=== PATIENT | female | born 1945 | race Caucasian/White ===

== ENCOUNTER 2021-05-14 15:44 | Emergency (ER) | payer MEDICARE, SELFPAY ==
[2021-05-14 15:50] VITALS: BP 138/65; PULSE 86; RESP 16; TEMP 36.6; O2SAT 98
[2021-05-14 16:03] VITALS: BP 138/65; PULSE 86; RESP 16; TEMP 36.6; O2SAT 98
[2021-05-14 16:14] VITALS: BP 140/78; PULSE 96; RESP 20; TEMP 35.6; O2SAT 99
--- NOTE | 2021-05-14 16:21 | ED.GENADULT ---
HPI - General Adult General Chief complaint: Unspecified Stated complaint: not feeling well Related Data Home Medications Medication Instructions Recorded Confirmed carvedilol phosphate [Coreg CR] mg PO 05/14/21 levothyroxine 05/14/21 meloxicam 05/14/21 sacubitril-valsartan [Entresto] 05/14/21 Allergies Allergy/AdvReac Type Severity Reaction Status Date / Time Penicillins Allergy Mild Verified 08/25/17 10:54 Course Vital Signs Vital signs: Vital Signs Temperature 97.9 F 05/14/21 15:50 Pulse Rate 86 05/14/21 15:50 Respiratory Rate 16 05/14/21 15:50 Blood Pressure 138/65 05/14/21 15:50 Pulse Oximetry 98 05/14/21 15:50 Temperature 96.1 F L 05/14/21 16:14 Pulse Rate 96 05/14/21 16:14 Respiratory Rate 20 05/14/21 16:14 Blood Pressure 140/78 05/14/21 16:14 Pulse Oximetry 99 05/14/21 16:14 Medical Decision Making Vital Signs Vital Signs: Vital Signs Temperature 97.9 F 05/14/21 15:50 Pulse Rate 86 05/14/21 15:50 Respiratory Rate 16 05/14/21 15:50 Blood Pressure 138/65 05/14/21 15:50 Pulse Oximetry 98 05/14/21 15:50 Temperature 96.1 F L 05/14/21 16:14 Pulse Rate 96 05/14/21 16:14 Respiratory Rate 20 05/14/21 16:14 Blood Pressure 140/78 05/14/21 16:14 Pulse Oximetry 99 05/14/21 16:14 Discharge Plan Discharge Clinical Impression: Viral infection, Upper respiratory infection, viral Patient Disposition: Home, Self-Care Condition: Stable Instructions: Antibiotic Form Additional Instructions: Follow up with provider in 1 week Take medication as prescribed What are the main signs? ?Cough ?Sneezing ?Sore throat ?Runny nose ?Stuffy nose ?Fever ?Headache ?Muscle pain ?Tired ?Weakness What can be done to prevent this health problem? ?Have your child wash hands often with soap and water for at least 15 seconds, especially after coughing or sneezing. Alcohol-based hand sanitizers also work to kill germs. ?If your child is sick, have your child cover the mouth and nose with tissue when coughing or sneezing. Your child can also cough into the elbow. Have your child throw away tissues in the trash and wash hands after touching used tissues. ?Do not get too close (kissing, hugging) to people who are sick. ?Do not share towels or hankies with anyone who is sick. ?Stay away from crowded places. ?Have your child get a flu shot each year. Prescriptions: New ondansetron HCl [Zofran] 4 mg tablet 4 mg PO Q8H PRN (Reason: nausea and vomiting) Qty: 30 RF: 0 No Action meloxicam 15 mg tablet RF: 0 levothyroxine 50 mcg tablet RF: 0 carvedilol phosphate [Coreg CR] 10 mg capsule, ER multiphase 24 hr PO RF: 0 Entresto 24-26 mg tablet RF: 0 Other Ambulatory Orders: SARS-CoV-2 RNA, Qual RT-PCR (Routine) Timeframe: 1 Week Facility: [facility] - Location: [facility] Thru Testing Ordered By: Skyler Reyes Follow-up/Referrals: UNKNOWN,DOCTOR [Primary Care Provider] -
--- NOTE | 2021-05-14 16:22 | ED.GENADULT ---
HPI - General Adult General Chief complaint: Unspecified Stated complaint: not feeling well Source: patient and RN notes reviewed Mode of arrival: ambulatory History of Present Illness HPI narrative: This is a 75-year-old female who presented to urgent care with complaints of nausea, headache, drainage and congestion with chills. Patient has been vaccinated with the [employer] vaccination x2. Patient states that she has been socializing more with her mask off and and wants to be tested for Covid .patient did not take anything at home to relieve her symptoms. The patient denies SOB, CP, palpitation, extremity numbness, lightheadedness, dizziness, constipation, diarrhea, chills, or fever. Related Data Home Medications Medication Instructions Recorded Confirmed carvedilol phosphate [Coreg CR] mg PO 05/14/21 levothyroxine 05/14/21 meloxicam 05/14/21 sacubitril-valsartan [Entresto] 05/14/21 Allergies Allergy/AdvReac Type Severity Reaction Status Date / Time Penicillins Allergy Mild Verified 08/25/17 10:54 Review of Systems Review of Systems: A 14 organ system Review of Systems was performed and pertinent positives included in the HPI, otherwise remaining ROS is negative. [facility] Family History Family History (Updated 05/14/21 @ 16:25 by JUAN R Sanchez-Brijesh) Other Family history non-contributory Exam Narrative: GENERAL: This is a well-nourished, well-developed patient, in no apparent distress. HEAD: normocephalic, atraumatic. EYES: PERRL. Sclera clear/white. Vision is grossly intact. EARS: External ears normal, auditory canals clear and without drainage, TMs normal without perforation. Hearing grossly intact. NOSE: External nose normal with no obvious nasal discharge, nares without redness, no rhinorrhea. THROAT: Mucous membranes moist, posterior pharynx clear. NECK: Neck supple, non-tender without lymphadenopathy, masses or thyromegaly. CARDIOVASCULAR: Regular rate and rhythm without murmurs, gallops, or rubs. RESPIRATORY: Clear to auscultation. Breath sounds equal bilaterally. No wheezes, rales, or rhonchi. GASTROINTESTINAL: Abdomen soft, non-tender, nondistended. Bowel sounds are active. No hepato-splenomegaly, or palpable masses. No guarding. SKIN: warm, intact with no suspicious lesions or rash, good texture and turgor. NEURO: awake, alert, and oriented to person, place and time. There were no obvious focal neurologic abnormalities. Steady gait EXTREMITIES: Normal range of motion. No edema. No calf tenderness. Negative Homans sign bilaterally. BACK: Nontender without deformity or crepitance. No flank tenderness. Course Course Emergency Course: Patient will be given Zofran for nausea and instructed to use [id number] medication for her symptoms. She will also be tested for Covid. Vital Signs Vital signs: Vital Signs Temperature 97.9 F 05/14/21 15:50 Pulse Rate 86 05/14/21 15:50 Respiratory Rate 16 05/14/21 15:50 Blood Pressure 138/65 05/14/21 15:50 Pulse Oximetry 98 05/14/21 15:50 Temperature 96.1 F L 05/14/21 16:14 Pulse Rate 96 05/14/21 16:14 Respiratory Rate 20 05/14/21 16:14 Blood Pressure 140/78 05/14/21 16:14 Pulse Oximetry 99 05/14/21 16:14 Medical Decision Making Differential Diagnosis Differential Diagnosis: Viral upper respiratory infection, bronchitis versus Covid versus gastroenteritis Vital Signs Vital Signs: Vital Signs Temperature 97.9 F 05/14/21 15:50 Pulse Rate 86 05/14/21 15:50 Respiratory Rate 16 05/14/21 15:50 Blood Pressure 138/65 05/14/21 15:50 Pulse Oximetry 98 05/14/21 15:50 Temperature 96.1 F L 05/14/21 16:14 Pulse Rate 96 05/14/21 16:14 Respiratory Rate 20 05/14/21 16:14 Blood Pressure 140/78 05/14/21 16:14 Pulse Oximetry 99 05/14/21 16:14 Discharge Plan Discharge Clinical Impression: Viral infection, Upper respiratory infection, viral Patient Disposition: Home, Self-Care
== END 2021-05-14 16:22 | disposition home or self-care (01) ==
PROVIDERS: Emergency Provider Nurse Practitioner
DX: B34.9 Viral infection, unspecified (principal); J06.9 Acute upper respiratory infection, unspecified; Z20.822 Contact with and (suspected) exposure to COVID-19
CPT/HCPCS: 99213; G0463

== ENCOUNTER → 2021-05-16 07:23 | Outpatient (CLI) | payer MEDICARE, SELFPAY ==
[2021-05-17 00:17] LABS: SARS-CoV-2 RNA PCR Negative
== END ==
PROVIDERS: Visit Provider Nurse Practitioner
DX: Z20.822 Contact with and (suspected) exposure to COVID-19 (principal)
CPT/HCPCS: C9803; U0003; U0005

== ENCOUNTER 2021-08-19 08:38 | Emergency (ER) | payer MEDICARE, SELFPAY ==
[2021-08-19 08:50] VITALS: BP 141/71; PULSE 80; RESP 18; TEMP 36.3; O2SAT 99
--- NOTE | 2021-08-19 09:09 | ED.URI ---
HPI - URI/Sore Throat General Chief Complaint: Upper Respiratory Infection Stated Complaint: Congestion History of Present Illness HPI Narrative: This is a 75-year-old female that presents to the urgent care complaining of upper respiratory symptoms. Patient states that she thinks she has cut bronchitis from her brother and her brother are prone to catching illnesses from each other. Patient informs me that has been going on for over a week. Patient states that she started some extra doxycycline she had home and after she finished that she started some Omnicef because that is when she started feeling better. Patient states that she still not feeling good she still has a cough her voice is leaving her denies any fever nausea and/or vomiting or diarrhea Related Data Home Medications Medication Instructions Recorded Confirmed carvedilol phosphate [Coreg CR] 10 mg PO DAILY 05/14/21 08/19/21 levothyroxine 50 mcg PO DAILY 05/14/21 08/19/21 meloxicam 15 mg PO DAILY 05/14/21 08/19/21 sacubitril-valsartan [Entresto] 1 tablet PO DAILY 05/14/21 08/19/21 Allergies Allergy/AdvReac Type Severity Reaction Status Date / Time Penicillins Allergy Mild Hives Verified 08/19/21 09:28 Review of Systems Review of Systems: Complains of cough laryngitis sore throat runny nose All other symptoms reviewed and within normal limits [facility] Family History Family History (Updated 05/14/21 @ 16:25 by MATHEW Sanchez) Other Family history non-contributory Comments Past medical systems Exam Narrative: GENERAL:Well-appearing, pale and in no acute distress. HEAD:Normocephalic, EYES: PERRLA ENT: Nares clear, clear nasal drainage rhinorrhea . Mucous membranes moist. CHEST: Clear to auscultation. No respiratory distress. HEART: Regular rate and rhythm. ABDOMEN: Soft, nontender, nondistended, normal active bowel sounds. EXTREMITIES: Normal range of motion. No edema. SKIN: Warm, dry, no rash. NEURO: No focal deficits. Alert and oriented x3. Course Vital Signs Vital signs: Vital Signs Temperature 97.4 F L 08/19/21 08:50 Pulse Rate 80 08/19/21 08:50 Respiratory Rate 18 08/19/21 08:50 Blood Pressure 141/71 H 08/19/21 08:50 Pulse Oximetry 99 08/19/21 08:50 Temperature 97.4 F L 08/19/21 08:50 Pulse Rate 80 08/19/21 08:50 Respiratory Rate 18 08/19/21 08:50 Blood Pressure 141/71 H 08/19/21 08:50 Pulse Oximetry 99 08/19/21 08:50 MDM - URI/Sore Throat Differential Diagnosis Differential diagnosis: Likely upper respiratory infection, croup, otitis media, sinusitis, viral infection, bronchitis, influenza and pharyngitis Lab Data Labs: Influenza A Screen Negative Reference Range: Negative Influenza B Screen Negative Reference Range: Negative Strep Screen Presumptive Negative *(Reference Range: Negative)* Discharge Plan Discharge Clinical Impression: Upper respiratory infection Qualifiers: URI type: unspecified URI Qualified Code(s): J06.9 - Acute upper respiratory infection, unspecified Patient Disposition: Home, Self-Care Condition: Stable Instructions: Antibiotic Form, Viral Syndrome (ED) Additional Instructions: Viral illness may last between 7-12days; antibiotic is NOT recommended at this time. Recommend antihistamine such as Benadryl at night time and Claritin/Zyrtec/Steph during the day Also, recommend symptomatic treatment includes: rest, fluids, and increase humidity of the air at home. Recommend Acetaminophen or nonsteroidal anti-inflammatory agents (NSAIDs) as directed in the bottle to reduce fever and/pain/headache. Avoid smoking/second-hand smoke. Limit visits to areas with large crowds. Please schedule a follow-up visit with your personal physician for further evaluation and treatment within 3-5
== END 2021-08-19 10:29 | disposition home or self-care (01) ==
PROVIDERS: Emergency Provider Nurse Practitioner Family
DX: J06.9 Acute upper respiratory infection, unspecified (principal)
CPT/HCPCS: 87081; 87804; 87880; 99213; G0463

== ENCOUNTER → 2021-08-21 08:00 | Outpatient (CLI) | payer MEDICARE, SELFPAY ==
[2021-08-21 17:50] LABS: SARS-CoV-2 RNA PCR Negative
== END ==
PROVIDERS: PCP Nurse Practitioner Family; Visit Provider Nurse Practitioner Family
DX: J06.9 Acute upper respiratory infection, unspecified (principal); Z20.822 Contact with and (suspected) exposure to COVID-19
CPT/HCPCS: C9803; U0003; U0005

== ENCOUNTER → 2022-04-15 10:26 | Outpatient (CLI) | payer MEDICARE, SELFPAY ==
--- NOTE | ~2022-04-15 | US_ITS ---
US breast RT complete INDICATION: Palpable breast lump in the right breast. History of breast reduction surgery. Breast neyda n. Most recent mammogram 07/2021 at outside institution. History of breast cancer in the family. TECHNIQUE: Dedicated complete right breast ultrasound including all 4 quadrants in the subareolar loc ation COMPARISON: No prior studies for comparison. FINDINGS: The right breast is composed of normal heterogeneous echotexture without focal solid or cys tic mass. IMPRESSION: 1: Normal right breast ultrasound. Recommend correlation with diagnostic mammogram. BI-RADS CATEGORY 0 - INCOMPLETE STUDY, NEED ADDITIONAL IMAGING EVALUATION. Reviewed, dictated and finalized at location A. IMPRESSION: 1: Normal right breast ultrasound. Recommend correlation with diagnostic mammog otto. BI-RADS CATEGORY 0 - INCOMPLETE STUDY, NEED ADDITIONAL IMAGING EVALUATION.
== END ==
PROVIDERS: PCP Surgery Plastic and Reconstructive Surgery; Visit Provider Surgery Plastic and Reconstructive Surgery
DX: N63.10 Unspecified lump in the right breast, unspecified quadrant (principal); R92.2 Inconclusive mammogram
CPT/HCPCS: 76641

== ENCOUNTER 2023-04-24 18:05 | Emergency (ER) | payer MEDICARE, SELFPAY ==
[2023-04-24 18:16] VITALS: BP 102/69; PULSE 100; RESP 16; TEMP 37.2; O2SAT 99
[2023-04-24 18:18] VITALS: BP 102/69; PULSE 100; RESP 16; TEMP 37.2; O2SAT 99
--- NOTE | 2023-04-24 18:41 | ED.URI ---
HPI - URI/Sore Throat General Chief Complaint: Upper Respiratory Infection Stated Complaint: Sore throat Time Seen by Provider: 04/24/23 18:26 Source: patient and RN notes reviewed Mode of arrival: ambulatory Limitations: no limitations History of Present Illness HPI Narrative: Patient presents today complaining of a right-sided sore throat x3 days it is only present with swallowing. States she has felt feverish but has not had a fever. Reports some mild nasal congestion as well. She has been taking Sudafed and Claritin as well as 3 days of leftover doxycycline from a previous prescription. States none of these have been providing her with any relief. Related Data Home Medications Medication Instructions Recorded Confirmed carvedilol phosphate 10 mg 10 mg PO DAILY 05/14/21 04/24/23 capsule,[id number] multiphase (Coreg CR) levothyroxine 50 mcg tablet 50 mcg PO DAILY 05/14/21 04/24/23 meloxicam 15 mg tablet 15 mg PO DAILY 05/14/21 04/24/23 sacubitril 24 mg-valsartan 26 mg 1 tablet PO DAILY 05/14/21 04/24/23 tablet (Entresto) duloxetine 30 mg capsule,delayed 30 mg PO DAILY 04/24/23 04/24/23 release esomeprazole magnesium 20 mg 20 mg PO DAILY 04/24/23 04/24/23 capsule,delayed release Allergies Allergy/AdvReac Type Severity Reaction Status Date / Time Penicillins Allergy Mild Hives Verified 04/24/23 18:17 Review of Systems Review of Systems: CONSTITUTIONAL: Denies body aches, fever, chills, or sweats. EYES: Denies visual changes, redness, or discharge. ENT: Denies rhinorrhea, or otalgia.+ sore throat, congestion CARDIOVASCULAR: Denies chest pain, palpitations, or edema. RESPIRATORY: Denies cough or dyspnea. GASTROINTESTINAL: Denies abdominal pain, nausea, vomiting, or diarrhea. GENITOURINARY: Denies dysuria or hematuria. SKIN: Denies rash, itching, or wounds. MUSCULOSKELETAL: Denies back pain, joint pain, or myalgia. NEUROLOGIC: Denies headache, numbness, tingling, or weakness. PSYCH: Denies depression or anxiety. [facility] Past Medical History Medical History Cataracts, bilateral Surgical History Surgical History History of bilateral breast reduction surgery History of lumbar laminectomy Family History Family History Mother Lewy body dementia Father Polycythemia vera Sibling Lupus Other Family history non-contributory Social History Social History Smoking status: Never smoker Alcohol intake: current Comments At time of signature, I have reviewed and agree with nursing past medical, surgical, social and family history unless otherwise noted. Please see nursing chart for further information. There is no relevant family history pertinent to the presenting complaint Exam Narrative: GENERAL: Well-appearing, well-nourished, and in no acute distress. HEAD: Normocephalic, atraumatic. EYES: EOMI. No redness or drainage. Conjunctivae normal. ENT: Mucous membranes pink and moist. Nares clear. No rhinorrhea. TMs normal bilaterally. Throat with small white ulceration on an erythematous base to the right palatine arch. Uvula midline. No additional erythema, edema, or exudate noted. NECK: Normal AROM. CHEST: No respiratory distress. Clear to auscultation. HEART: Regular rate and rhythm. No murmur appreciated. Normal peripheral pulses. EXTREMITIES: Normal range of motion. No edema. SKIN: Warm, dry, no rash. Capillary refill normal. Normal skin turgor. NEURO: No focal deficits. Alert and oriented x3. Gait steady. PSYCH: Normal affect. No signs of depression or anxiety. Course Course Level of Care: Express Care Visit Vital Signs Vital signs: Vital Signs Temperature 98.9 F 04/24/23 18:16 Pulse Rate 100 04/24/23 18:
== END 2023-04-24 19:01 | disposition home or self-care (01) ==
PROVIDERS: Emergency Provider Nurse Practitioner; PCP Family Medicine
DX: K12.0 Recurrent oral aphthae (principal); H26.9 Unspecified cataract
CPT/HCPCS: 99213; G0463

== ENCOUNTER 2024-05-23 14:32 | Emergency (ER) | payer MEDICARE, SELFPAY ==
--- NOTE | ~2024-05-23 | XR_ITS ---
EXAMINATION: XR chest 2V Exam Date/Time: 05/23/2024 15:50 CDT HISTORY: cough congestion non smoker Comparison: 06/03/2010; CT chest 06/10/2018. RESULT: Lines, tubes, and devices: None. Lungs and pleura: Clear. Cardiomediastinal silhouette: Stable. Moderate hiatal hernia Other: No acute osseous or upper abdominal finding. IMPRESSION: No acute cardiopulmonary process. Reviewed, dictated and finalized at location K.
[2024-05-23 14:43] VITALS: BP 112/67; PULSE 78; RESP 16; TEMP 36.8; O2SAT 99
--- NOTE | 2024-05-23 15:35 | ED.URI ---
HPI - URI/Sore Throat General Chief Complaint: Upper Respiratory Infection Stated Complaint: Sinus Source: patient, RN notes reviewed and old records reviewed Mode of arrival: ambulatory Limitations: no limitations History of Present Illness HPI Narrative: Patient presents with complaints of runny nose, hoarseness, malaise. Symptoms have been present for approximately 4 days. She has been resting and drinking additional fluids. She is extremely anxious about her symptoms because she has an upcoming pacemaker/defibrillator procedure next week. 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 She denies any fever, chills, sweats. She denies any nausea or vomiting. She denies any GI symptoms. She does not appear to be in any distress. Related Data Home Medications Medication Instructions Recorded Confirmed levothyroxine 50 mcg tablet 50 mcg PO DAILY 05/14/21 05/23/24 sacubitril 24 mg-valsartan 26 mg 1 tablet PO DAILY 05/14/21 05/23/24 tablet (Entresto) dapagliflozin propanediol 10 mg 10 mg PO DAILY 05/23/24 05/23/24 tablet (Farxiga) metoprolol succinate 25 mg 25 mg PO DAILY 05/23/24 05/23/24 tablet,extended release 24 hr omeprazole 20 mg capsule,delayed 20 mg PO DAILY 05/23/24 05/23/24 release spironolactone 25 mg tablet 25 mg PO DAILY 05/23/24 05/23/24 Allergies Allergy/AdvReac Type Severity Reaction Status Date / Time Penicillins Allergy Mild Hives Verified 05/23/24 15:36 Review of Systems Review of Systems: All systems reviewed & are unremarkable except as noted in HPI and below Constitutional: Constitutional: Reports no additional constitutional complaints ENT: Reports system reviewed and no additional complaints, except as documented Cardiovascular: Cardiovascular: Reports no additional cardiovascular complaints Respiratory: Respiratory: Reports no additional respiratory complaints Gastrointestinal: Gastrointestinal: Reports no additional gastrointestinal complaints [facility] Past Medical History Medical History Cataracts, bilateral Surgical History Surgical History History of bilateral breast reduction surgery History of lumbar laminectomy Family History Family History Mother Lewy body dementia Father Polycythemia vera Sibling Lupus Other Family history non-contributory Social History Social History Smoking status: Never smoker Alcohol intake: current Comments At the time of my signature, I reviewed and agree with the nursing past medical, surgical, social, and family history. There is no relevant family history pertinent to the patient complaint. Exam Const: General: cooperative, no acute distress, alert and awake Orientation/consciousness: oriented to person, oriented to place and oriented to time HENMT: Head: normal to inspection Mouth: Yes oropharynx normal, Yes moist mucous membranes and Yes other (hoarse voice) Neck: Neck: normal visual inspection and full ROM Resp: Effort & Inspection: normal respiratory effort and able to speak in complete sentences Auscultation: clear to auscultation bilaterally, no crackles, no rales, no rhonchi, no wheezes and diminished lung sounds bilateral in the lower lung tinoco Cardio: Palpation: normal PMI Rate: regular rate Rhythm: regular rhythm Heart sounds: S1 normal heart sound present and S2 normal heart sound present Neuro: General: oriented to person, oriented to place and oriented to time Cranial nerves: Yes CN's II-XII intact bilaterally Psych: Appearance: grossly normal Thought process: Normal thought process present Insight: Good insight present (Psych) Judgement: Good judgement present (Psych) Course Course Level of Care: Express Care Visit Vital Signs Vital signs: Vital Signs Temperat
== END 2024-05-23 16:20 | disposition home or self-care (01) ==
PROVIDERS: Emergency Provider Nurse Practitioner Family
DX: J06.9 Acute upper respiratory infection, unspecified (principal); H26.9 Unspecified cataract
CPT/HCPCS: 71046; 99213; G0463